=== PATIENT | male | born 2000 | race Caucasian/White ===

== ENCOUNTER 2021-06-22 18:16 | Emergency (ER) | payer OTHER ==
[~2021-06-22 18:16] MED LIST: CLINDAMYCIN HC300 MG PO; IBUPROFEN600 MG PO; NORCO 7.5-3251 EACH PO; VITAMIN C 500500 MG PO
[2021-06-22] MEDS ORDERED: PERCOCET 5/325 T1 EA PO (20:09)
[2021-06-22] MEDS ORDERED: ENDOCET 5-3251 EACH PO (20:14)
== END 2021-06-22 21:33 | disposition home or self-care (01) ==
LOC: ER1 18:16
DX: S82.831A Other fracture of upper and lower end of right fibula, initial encounter for closed fracture (principal); F17.200 Nicotine dependence, unspecified, uncomplicated; Z88.0 Allergy status to penicillin; Z88.8 Allergy status to other drugs, medicaments and biological substances; X58.XXXA Exposure to other specified factors, initial encounter; Y93.51 Activity, roller skating (inline) and skateboarding
CPT/HCPCS: 27752; 73590; 73600; 96374; 96375; 99152; 99283; J2250; J2270; J2405

== ENCOUNTER → 2021-07-07 | Day surgery (SDC) | payer OTHER ==
[~2021-07-07] MED LIST changes: +ENDOCET 5-3251 EACH PO; +PERCOCET 5/325 T1 EA PO
== END | disposition home or self-care (01) ==
LOC: OR 05:28
DX: S82.841A Displaced bimalleolar fracture of right lower leg, initial encounter for closed fracture (principal); S93.432A Sprain of tibiofibular ligament of left ankle, initial encounter; K21.9 Gastro-esophageal reflux disease without esophagitis; F41.9 Anxiety disorder, unspecified; Z88.0 Allergy status to penicillin; F17.210 Nicotine dependence, cigarettes, uncomplicated; Z20.822 Contact with and (suspected) exposure to COVID-19; G43.909 Migraine, unspecified, not intractable, without status migrainosus; Z88.1 Allergy status to other antibiotic agents
CPT/HCPCS: 73610; 76000; C1713; J0592; J1100; J1170; J1885; J2250; J2400; J2405; J2550; J2704; J2710; J2795; J3010; J7120